=== PATIENT | male | born 1990 | race African-American/Black ===

== ENCOUNTER 2025-04-20 17:39 | Emergency (ER) | payer OTHER ==
[~2025-04-20] VITALS: Ht 167.6 cm; Wt 98.9 kg
[2025-04-20 17:43] VITALS: TEMP 98.3
[2025-04-20] MEDS ORDERED: METF500T13 PO (17:48)
[2025-04-20] MEDS ORDERED: GLIP10TA PO (17:48)
[2025-04-20 18:27] LABS: BASO # 0.1 10^3/uL (0.0-0.2); BASO % 0.5 % (0.0-1.0); EOS # 0.5 10^3/uL (0.0-0.5); EOS % 3.2 % (0.0-3.0); LYMPH # 3.5 10^3/uL (1.5-5.0); LYMPH % 24.1 % (24.0-44.0); MONO # 0.6 10^3/uL (0.0-0.8); MONO % 4.4 % (2.0-8.0); NEUTROPHILS # 9.7 10^3/uL (1.5-8.5); NEUTROPHILS % 67.5 % (36.0-66.0); PLATELET COUNT, AUTOMATED 254 10^3/uL (150-450)
[2025-04-20] MEDS: ONDANSETRON 4MG 2ML VIAL IV ONE (18:46)
[2025-04-20 18:48] LABS: KETONE, URINE AUTO RFX TRACE mg/dL (NEGATIVE); MUCUS, URINE RFX LARGE (NEGATIVE); NITRITE, URINE AUTO RFX NEGATIVE (NEGATIVE); RBC, URINE AUTO RFX 5 /HPF (0-3); SQUAM EPITHELIAL CELL UR AURFX 6 /HPF (0-6)
[2025-04-20 18:49] LABS: LEUKOCYTE ESTERASE UR AUTO RFX TRACE (NEGATIVE); WBC, URINE AUTO RFX 25 /HPF (0-3)
[2025-04-20 18:59] LABS: ALT/SGPT 33 U/L (7.0-40); AST/SGOT 21 U/L (<34); CALCIUM LEVEL 9.4 MG/DL (8.5-10.1); CARBON DIOXIDE LEVEL 24 MMOL/L (20-31); CHLORIDE LEVEL 102 MMOL/L (98-107); CREATININE FOR GFR 0.69 MG/DL (0.70-1.30); GLOMERULAR FILTRATION RATE > 90.0 (>60); MAGNESIUM LEVEL 1.8 MG/DL (1.8-2.4); POTASSIUM SERUM 4.0 MMOL/L (3.5-5.1); SODIUM LEVEL 137 MMOL/L (136-145)
[2025-04-20 19:01] LABS: FREE T4 1.62 NG/DL (0.89-1.76)
[2025-04-20] MEDS: NS (Normal Saline) 0.9% 1,000 ML IV ONE (19:22)
[2025-04-20 20:09] VITALS: O2SAT 95
[2025-04-20 20:16] VITALS: BP 169/98
== END 2025-04-20 21:35 | disposition left against medical advice (07) ==
LOC: M ED 17:39
DX: R11.2 Nausea with vomiting, unspecified (principal); Z53.9 Procedure and treatment not carried out, unspecified reason; E11.9 Type 2 diabetes mellitus without complications; Z79.84 Long term (current) use of oral hypoglycemic drugs
CPT/HCPCS: 80053; 81001; 83690; 83735; 84439; 84443; 85025; 87086; 87486; 87581; 87633; 87798; 96374; 99284; J2405

== ENCOUNTER 2025-04-21 21:12 | Emergency (ER) | payer OTHER ==
[~2025-04-21] VITALS: Ht 167.6 cm; Wt 98.2 kg
[~2025-04-21 21:12] MED LIST: GLIP10TA PO; METF500T13 PO
[2025-04-21 21:16] VITALS: TEMP 98.8
[2025-04-22] MEDS: ONDANSETRON 4MG 2ML VIAL IV ONE (01:07)
[2025-04-22 01:14] LABS: VENOUS BASE EXCESS 0.0 (-2.0-2.0); VENOUS HCO3 25.0 MMOL/L (23.0-27.0); VENOUS O2 SATURATION 73.3 % (60.0-80.0); VENOUS PARTIAL PRESSURE CO2 41.9 mmHg (38.0-50.0); VENOUS PARTIAL PRESSURE O2 37.2 mmHg (30.0-50.0); VENOUS PH 7.393 UNITS (7.330-7.430); VENOUS STANDARD HCO3 23.8 MMOL/L; VENOUS TOTAL CO2 26.3 MMOL/L (24.0-28.0)
[2025-04-22 01:24] LABS: BASO # 0.1 10^3/uL (0.0-0.2); BASO % 0.3 % (0.0-1.0); EOS # 0.2 10^3/uL (0.0-0.5); EOS % 1.3 % (0.0-3.0); LYMPH # 3.0 10^3/uL (1.5-5.0); LYMPH % 18.8 % (24.0-44.0); MONO # 0.8 10^3/uL (0.0-0.8); MONO % 5.2 % (2.0-8.0); NEUTROPHILS # 11.6 10^3/uL (1.5-8.5); NEUTROPHILS % 74.1 % (36.0-66.0); PLATELET COUNT, AUTOMATED 248 10^3/uL (150-450)
[2025-04-22] MEDS: HALOPERIDOL LACTATE 5 MG/ML VIAL IV ONE (01:38)
[2025-04-22] MEDS: NS (Normal Saline) 0.9% 1,000 ML IV ONE (01:38)
[2025-04-22 01:53] LABS: ACETONE/KETONE 0.73 MMOL/L (0.02-0.27)
[2025-04-22 02:27] LABS: ALT/SGPT 47 U/L (7.0-40); AST/SGOT 43 U/L (<34); CALCIUM LEVEL 9.2 MG/DL (8.5-10.1); CARBON DIOXIDE LEVEL 25 MMOL/L (20-31); CHLORIDE LEVEL 101 MMOL/L (98-107); CREATININE FOR GFR 0.59 MG/DL (0.70-1.30); GLOMERULAR FILTRATION RATE > 90.0 (>60); POTASSIUM SERUM 4.4 MMOL/L (3.5-5.1); SODIUM LEVEL 138 MMOL/L (136-145)
[2025-04-22 02:35] LABS: OSMOLALITY SERUM 299 MOSM/KG (275-295)
[2025-04-22 02:52] LABS: ESTIMATED AVERAGE GLUCOSE 192.0 MG/DL (60-110)
[2025-04-22 04:00] LABS: AMPHETAMINES LEVEL URINE NEGATIVE (NEGATIVE); BARBITURATES URINE NEGATIVE (NEGATIVE); BENZODIAZEPINES URINE NEGATIVE (NEGATIVE); METHADONE URINE NEGATIVE (NEGATIVE); OPIATES URINE NEGATIVE (NEGATIVE); PHENCYCLIDINE URINE NEGATIVE (NEGATIVE)
[2025-04-22 04:01] LABS: CANNABINOIDS URINE POSITIVE (NEGATIVE); COCAINE METABOLITE URINE POSITIVE (NEGATIVE)
[2025-04-22 04:35] LABS: KETONE, URINE AUTO RFX 1+ mg/dL (NEGATIVE); MUCUS, URINE RFX LARGE (NEGATIVE); NITRITE, URINE AUTO RFX NEGATIVE (NEGATIVE); RBC, URINE AUTO RFX 2 /HPF (0-3); SQUAM EPITHELIAL CELL UR AURFX 1 /HPF (0-6)
[2025-04-22 04:38] LABS: LEUKOCYTE ESTERASE UR AUTO RFX 1+ (NEGATIVE); WBC, URINE AUTO RFX 54 /HPF (0-3)
[2025-04-22] MEDS ORDERED: ONDA-282 PO (06:23)
[2025-04-22 06:30] VITALS: O2SAT 100
[2025-04-22 06:31] VITALS: BP 152/94
== END 2025-04-22 06:43 | disposition home or self-care (01) ==
LOC: M ED 21:12
DX: F12.188 Cannabis abuse with other cannabis-induced disorder (principal); E11.9 Type 2 diabetes mellitus without complications; F17.200 Nicotine dependence, unspecified, uncomplicated; Z79.84 Long term (current) use of oral hypoglycemic drugs
CPT/HCPCS: 80048; 80076; 80307; 81001; 82010; 82803; 83036; 83605; 83690; 83930; 85025; 87086; 93041; 96374; 96375; 99285; J1630; J2405